=== PATIENT | female | born 1955 | race Caucasian/White ===

== ENCOUNTER 2019-12-08 12:19 | Inpatient (IN) ==
[2019-12-08] MEDS ORDERED: *HR* FentaNYL (PF) 100 MCG/2 ML VIAL ONE (13:06)
[2019-12-08] MEDS ORDERED: *HR* Propofol 200 MG/20 ML VIAL IVP ONE (13:06)
[2019-12-08] MEDS ORDERED: *HR* Midazolam HCl 2 MG/2 ML VIAL ONE (13:06)
[2019-12-08] MEDS ORDERED: *HR* Succinylcholine 200 MG/10 ML VIAL IVP ONE (13:07)
[2019-12-08] MEDS ORDERED: Lidocaine -MPF 2% 2 ML VIAL ONE (13:07)
[2019-12-08] MEDS ORDERED: CeFAZolin Syr 2,000MG/20 ML 2,000 MG/20 ML SYRINGE IVPB ONE (13:24)
[2019-12-08] MEDS ORDERED: Ringers Solution, Lactated 1,000 ML IVC SCH ×2 (13:30→17:12)
[2019-12-08] MEDS ORDERED: Ethanol\\Acetic Acid\\Na Ace\\Ben 1,000 ML IRRIG.SOLN IR ONE (13:46)
[2019-12-08] MEDS ORDERED: Vancomycin 1,000 MG VIAL ONE (13:46)
[2019-12-08] MEDS ORDERED: Ropivacaine/PF 0.5% 30 ML VIAL ONE (13:53)
[2019-12-08] MEDS ORDERED: *HR* Meperidine 25 MG/ML SYRINGE IVP PRN (15:00)
[2019-12-08] MEDS ORDERED: *HR* HYDROmorphone PF 0.5 MG/0.5 ML SYRINGE IVP PRN (15:00)
[2019-12-08] MEDS ORDERED: Acetaminophen IV 1,000 MG/100 ML INFUS..BTL IVPB ONE (15:00)
[2019-12-08] MEDS ORDERED: *HR* Promethazine 25 MG/ML VIAL IVP PRN (15:00)
[2019-12-08] MEDS ORDERED: Ondansetron 4 MG/2 ML VIAL IVP ONE (15:00)
[2019-12-08] MEDS ORDERED: *HR* OxyCODONE Immed Rel 5 MG TABLET PO PRN ×2 (15:00→17:12)
[2019-12-08] MEDS ORDERED: *HR* PHENYLEPHRINE 1,000 MCG/10 ML SYRINGE IVP ONE (15:08)
[2019-12-08] MEDS ORDERED: EPHEDrine 50 MG/ML VIAL ONE (15:15)
[2019-12-08] MEDS ORDERED: Dexamethasone 4 MG/ML VIAL ONE (15:34)
[2019-12-08] MEDS ORDERED: Ondansetron 4 MG/2 ML VIAL ONE (15:34)
[2019-12-08 16:41] LABS: Hemoglobin 14.2 g/dL (11.5-15.4)
[2019-12-08] MEDS ORDERED: Sennosides 8.6 MG TABLET PO PRN (17:12)
[2019-12-08] MEDS ORDERED: *HR* Dextrose 50 % in Water (Vial) 50 ML VIAL IVP PRN (17:12)
[2019-12-08] MEDS ORDERED: Dextrose Gel 15 GM/37.5 ML TUBE PO PRN ×2 (17:12)
[2019-12-08] MEDS ORDERED: Ondansetron 4 MG/2 ML VIAL IVP PRN (17:12)
[2019-12-08] MEDS ORDERED: Naloxone 0.4 MG/ML INJ IVP PRN (17:12)
[2019-12-08] MEDS ORDERED: MOM Conc 10 ML UD.LIQ PO PRN (17:12)
[2019-12-08] MEDS ORDERED: hydroCHLOROthiazide 25 MG TABLET PO PRN (17:12)
[2019-12-08] MEDS ORDERED: D5% in Water 1,000 ML IVC PRN (17:12)
[2019-12-08] MEDS ORDERED: levETIRAcetam 250 MG TABLET PO SCH (18:00)
[2019-12-08] MEDS: Insulin LISPRO 300 UNITS/3 ML VIAL SQ SCH (18:11)
[2019-12-08] MEDS ORDERED: Insulin LISPRO 300 UNITS/3 ML VIAL SQ SCH (21:00)
[2019-12-08] MEDS ORDERED: Loratadine 10 MG TABLET PO SCH (21:00)
[2019-12-08] MEDS: CeFAZolin 2 GM/120 ML BAG IVPB SCH (23:01)
[2019-12-09] MEDS: CeFAZolin 2 GM/120 ML BAG IVPB SCH (05:53)
[2019-12-09 06:43] LABS: Hematocrit 44.9 % (35.3-44.9); Hemoglobin 14.7 g/dL (11.5-15.4)
[2019-12-09 07:06] LABS: BUN/Creatinine Ratio 21 (6-26); Blood Urea Nitrogen 16 mg/dL (8-23); Calcium 9.3 mg/dL (8.6-10.3); Carbon Dioxide 24 mEq/L (23-29); Chloride 106 mEq/L (98-107); Glucose 118 mg/dL (70-105); Osmolality,Calculated 292 (280-300); Potassium 4.3 mEq/L (3.5-5.1); Sodium 140 mEq/L (136-145); eGFR For African Americans > 60 (> 60); eGFR For Non-African Americans > 60 (> 60)
[2019-12-09] MEDS: *HR* OxyCODONE/APAP 5/325 TABLET PO PRN ×2 (07:07→11:11)
[2019-12-09] MEDS ORDERED: Cholecalciferol (D-3) 1,000 UNIT (25MCG) TABLET PO SCH (09:00)
[2019-12-09] MEDS ORDERED: NON-FORMULARY MEDICATION 1 EACH EACH (Potassium 99 MG) PO SCH (09:00)
[2019-12-09] MEDS ORDERED: Vitamin E 200 UNIT (90MG) CAPSULE PO SCH (09:00)
[2019-12-09] MEDS ORDERED: MAGNESIUM AMINO ACID CHELATE PO SCH (09:00)
[2019-12-09] MEDS ORDERED: Multivit/Ca/Min/Fe/FA 1 TAB TABLET PO SCH (09:00)
[2019-12-09] MEDS ORDERED: Aspirin Enteric Coated 81 MG Tablet PO SCH ×2 (09:00)
[2019-12-09] MEDS ORDERED: levETIRAcetam 250 MG TABLET PO SCH (09:00)
[2019-12-09] MEDS: Insulin LISPRO 300 UNITS/3 ML VIAL SQ SCH ×2 (09:05→15:03)
[2019-12-09 10:42] VITALS: BP 143/77
== END 2019-12-09 16:38 | disposition home health service (06) | DRG 483 ==
LOC: SAMDAY 12:19 → 3NENU 17:11
PROVIDERS: ADMIT Orthopaedic Surgery; ATTEND Orthopaedic Surgery